=== PATIENT | female | born 1985 | race Caucasian/White ===

== ENCOUNTER 2023-10-03 08:16 | Emergency (ER) | payer OTHER, SELFPAY ==
[2023-10-03 08:24] VITALS: BP 117/71
--- NOTE | 2023-10-03 09:26 | ED.GENMED ---
History of Present Illness
General
Chief Complaint: Allergic Reaction
Source: patient
Exam Limitations: none
Time Seen by Provider: 10/03/23 08:43
Nursing documentation reviewed up to this point in time: agreed with
Travel History
Have you had any contact with someone who has COVID-19?: No
Do you have any symptoms of coronavirus? Fever > 100 degrees, chills, cough, shortness of breath, sore throat, loss of taste or smell, muscle aches, or headache?: No
History of Present Illness
History of Present Illness:
38-year-old female presenting to the emergency department today with concerns of left great toe swelling ongoing over the past week recently treated with Bactrim without significant improvement.. Proceed only had an ingrown toenail. Additionally
has some mild pain to the left index finger over the past few days. No redness or warmth. Also had some vague itchiness and puffiness of her eyes bilaterally no redness or warmth no changes in vision no additional symptoms otherwise. No fevers no
chest pain or shortness of breath.
Past History
Past History
ED Past Medical History: Other (Lyme disease, ovarian cysts)
ED Past Surgical History: Orthopedic (Lumbar laminectomy) and Other (widsom teeth)
Social History
Tobacco: Non-smoker
Alcohol: Occasional
Drug: None
Personal:
Living: with family
Review of Systems
Review of Systems
Allergies reviewed?: Yes
All Other Systems: ROS reviewed and negative except as documented in HPI and ROS
Phy Exam
Physical Exam
Physical Exam:
GENERAL: Alert , in no apparent distress
EYE: pupils equal and reactive
NECK: Supple, no significant adenopathy.
ENT: Very subtle swelling to the periorbital region however no redness or warmth normal eye examination. o/p clr, mmm.
CARDIAC: Regular rate and rhythm .
LUNGS: Clear breath sounds bilaterally, no acute respiratory distress, no wheezes/rales/rhonchi
ABDOMEN: Soft, without focal tenderness, no r/g, no cvat
NEUROLOGICAL: Alert and oriented, no focal neuro deficits
SKIN: Warm and dry, skin intact.
MUSCULOSKELETAL: Swelling and redness to the left sided great toe recent ingrown toenail removal. Other toes normal in appearance mild tenderness palpation to the area no drainage. Normal-appearing left sided index finger no redness or warmth
normal range of motion and strength normal public health physician strength normal cap refill. Well perfused.
PSYCH: Normal and appropriate interaction.
Course
Orders/Labs/Results
Orders:
Orders
10/03/23 09:29
Cephalexin Monohydrate [Keflex] 500 mg PO NOW STA
Vital Signs
Initial and Last Documented VS:
Initial Vital Signs
Temp Pulse Resp BP Pulse Ox
98.2 F 67 20 117/71 100
10/03/23 08:24 10/03/23 08:24 10/03/23 08:24 10/03/23 08:24 10/03/23 08:24
Last Documented Vital Signs
Temp Pulse Resp BP Pulse Ox
98.2 F 67 20 117/71 100
10/03/23 08:24 10/03/23 08:24 10/03/23 08:24 10/03/23 08:24 10/03/23 08:24
MDM/Problems Addressed
MDM/Problems Addressed:
38-year-old female presenting to the emergency department today with concerns of ongoing discomfort to the left great toe where she previously had a ingrown toenail removed and has been taking Bactrim over the past week for potential secondary
infection. Also has noticed some puffiness and itchiness surrounding her eyes. Also has some mild pain to the left index finger but no overlying changes index fingers normal in appearance no redness or warmth no skin changes no signs of paronychia
good range of motion and strength no abnormalities on physical examination. Puffiness of the eyes is vaguely apparent but no redness or warmth no signs of infection. Normal posterior pharynx clear lungs no signs of significant allergy or
anaphylaxis. Patient is concluding Bactrim today and advised to discontinue as this does not appear to be a necessary antibiotic at this time. Patient did have ongoing redness and swelling to the left great toe which could indicate alternative
bacteria causing rather than MRSA. Patient was treated with Keflex with this possibility and advised for close podiatry follow-up otherwise return precautions given safe for outpatient management.
*Critical Care Note
Total Time (30-74mins, 75-104mins- exclusive of procedures): Not Applicable
ED Attending Note
-
Portions of this chart may have been created with voice recognition software.� Occasional wrong word or��sound alike� substitutions may have occurred due to the inherent limitations of voice recognition software.
Discharge Plan
Departure
Patient Disposition: Home (Routine Discharge)
Date of Disposition: 10/03/23
Time of Disposition: 09:31
Patient with high blood pressure during this ER visit?: No
Condition: Good
Covid-19: Not Applicable
Discharge Problem:
Infection of toe, Medication reaction
Instructions: Adverse Drug Reactions, Adult (DC)
Prescriptions:
New
cephalexin 500 mg capsule
500 mg PO QID 7 Days Qty: 28 0RF
No Action
Pre-Sasha Multivitamins/Minerals
1 tab PO DAILY
acetaminophen 325 mg Tablet
650 mg PO Q4HPRN PRN (Reason: mild pain) Qty: 0 0RF
ibuprofen 600 mg Tablet
600 mg PO Q6HPRN PRN (Reason: moderate pain/cramps) Qty: 0 0RF
cephalexin 500 mg capsule
500 mg PO BID 5 Days Qty: 10 0RF
Referrals:
UNKNOWN - PT DOES,NOT KNOW [Family Provider] -
Activity Restrictions/Additional Instructions:
You came to the emergency department today with concerns of multiple symptoms. You may have a mild infection to your toe. Please take Keflex 4 times daily for the next of days and follow-up closely with the oil furnace installer. You can discontinue Bactrim
at this point. Return to the emergency department for any worsening, new or concerning symptoms.
Interventions
Interventions:
*Risk Screen - Suicide Last Done: 10/03/23 08:39
*General Assessment Last Done: 10/03/23 08:36
*Neglect/Abuse Screening Last Done: 10/03/23 08:39
*ED COVID-19 Vaccine History Last Done: 10/03/23 08:36
[2023-10-03] MEDS: KEFLEX 500 MG PO (09:40)
== END 2023-10-03 09:45 | disposition home or self-care (01) ==
LOC: EMR 08:16
PROVIDERS: EMERGENCY PHYSICIAN Emergency Medicine
DX: M79.89 Other specified soft tissue disorders (principal); T50.905A Adverse effect of unspecified drugs, medicaments and biological substances, initial encounter; L08.9 Local infection of the skin and subcutaneous tissue, unspecified; M79.645 Pain in left finger(s); L29.9 Pruritus, unspecified; Z98.890 Other specified postprocedural states; Z88.8 Allergy status to other drugs, medicaments and biological substances; Z91.041 Radiographic dye allergy status
CPT/HCPCS: 99283

== ENCOUNTER 2024-06-08 10:36 | Emergency (ER) | payer OTHER, SELFPAY ==
[2024-06-08 10:47] VITALS: BP 119/68
--- NOTE | 2024-06-08 10:54 | ED.GENMED ---
ED Provider Triage
<Angela Collins PA-C - Last Filed: 06/08/24 10:58>
-
Patient seen by provider in Triage?: Seen in Triage
Attestation: A medical screening examination has been initiated by a qualified medical provider. Based on the assessment performed at this time, it has been determined that an emergent medical condition may exist and the patient has been informed
that further medical evaluation and possible additional diagnostic testing may be needed.
HPI: 39yoF here with chest pain x 2 weeks since a positive COVID test on 05/25/24. No SOB. Sent here by urgent care.
GENERAL: Alert , in no apparent distress
EYE: No visual abnormalities.
NECK: Trachea midline
ENT: No visible abnormalities.
LUNGS: No acute respiratory distress
NEUROLOGICAL: Alert and oriented
SKIN: Skin intact. No visible changes.
MUSCULOSKELETAL: Moving extremities normally
PSYCH: Normal and appropriate interaction.
This is a medical evaluation conducted in person to initiate diagnostic evaluation and provide initial therapeutics. Please see further documentation by the treating clinician.
VSS. Cardiac labs, EKG, and CXR ordered.
History of Present Illness
<Angela Collins PA-C - Last Filed: 06/08/24 10:58>
General
Chief Complaint: Chest Pain
Time Seen by Provider: 06/08/24 13:07
<CHRISTOPHE Steven - Last Filed: 06/08/24 15:43>
General
Source: patient
Exam Limitations: none
Nursing documentation reviewed up to this point in time: agreed with
History of Present Illness
History of Present Illness:
Patient is a 39 female who presents to the ER complaining of chest pain. She reports she had COVID 2 weeks ago and her presenting symptoms were chest pain and sore throat however her chest pain never resolved. She is very tearful complaining of
constant chest pressure she describes this as feeling that there is a band around her chest. She reports at times she does feel little short of breath with this and feels the need to take a deep breath. Thanks she denies any fevers. She reports
pain is constant though she is able to sleep with it it worsens in intensity at times. It Does not resolve with Motrin Tylenol although she reports she was only taking this sporadically not consistent.
She denies any history PE DVT. 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 No family history PE DVT. She does not smoke. She is not on control.
Past History
<Angela Collins PA-C - Last Filed: 06/08/24 10:58>
Past History
ED Past Medical History: Other (Lyme disease, ovarian cysts)
ED Past Surgical History: Orthopedic (Lumbar laminectomy) and Other (widsom teeth)
Social History
Tobacco: Non-smoker
Alcohol: Occasional
Drug: None
Personal:
Living: with family
Review of Systems
<CHRISTOPHE Steven - Last Filed: 06/08/24 15:43>
Review of Systems
Allergies reviewed?: Yes
All Other Systems: ROS reviewed and negative except as documented in HPI and ROS
Constitutional: Reports no symptoms; Denies fever, fatigue or chills
EENT: Reports other (Patient had a sore throat when diagnosed with COVID 2 weeks ago resolved)
Respiratory: Reports other (Minimal shortness of breath)
Cardiac: Reports other (Pain across the anterior chest)
ABD/GI: Reports no symptoms
: Reports no symptoms
Musculoskeletal: Reports no symptoms
Skin: Reports no symptoms
Neurological: Reports no symptoms
Psychiatric: Reports no symptoms
Phy Exam
<CHRISTOPHE Steven - Last Filed: 06/08/24 15:43>
General Physical Exam
General Presentation: no apparent distress
General age: appears stated age
General Skin: warm and dry
General Habitus: normal
General Mental: alert
General Hydration: appears well hydrated
Cardiovascular Exam
Cardiovascular Exam: no murmur, normal peripheral pulses and bradycardia
Pulmonary Exam
Pulmonary Exam: lungs clear, no respiratory distress and other (chest non tender )
Neurological Exam
Neurological Exam: alert and oriented x3
Musculoskeletal Exam
Musculoskeletal Exam: full ROM
Skin Exam
Skin Exam: normal color and warm/dry
Psychiatric Exam
Psychiatric Exam: normal mood/affect
Scores
<CHRISTOPHE Steven - Last Filed: 06/08/24 15:43>
Heart Score for Chest Pain Patients
STEMI patient?: Not applicable
Course
<Angela Collins PA-C - Last Filed: 06/08/24 10:58>
Orders/Labs/Results
Orders:
Orders
06/08/24 10:53
Electrocardiogram (*1) Urgent
Reason for Study: Chest Pain
EKG- Treatment ONCE
Test Result ONCE
06/08/24 10:57
CR Chest - 2 Views Urgent
Comment:
Reason For Exam: CP
06/08/24 10:59
CMP [Comprehensive Metabolic Panel] Urgent
Complete Blood Count/With Diff Urgent
HCG, Serum Qualitative Screen Urgent
Troponin I Urgent
06/08/24 14:20
CT Chest Pe Study Urgent
Comment:
Reason For Exam: cp/sob
IV Insert/Care/Rem.- Treatment PRN
0.9% Sodium Chloride 1000 ml [Nss] 1,000 ml IV BOLUS
Ketorolac [Toradol] 15 mg IV NOW STA
Abnormal Lab Results
06/08/24
10:59
WBC 4.5 L 10^3/uL
(4.8-10.8)
RBC 5.73 H 10^6/uL
(4.20-5.40)
Hgb 11.3 L g/dL
(12.0-16.0)
Hct 35.3 L %
(37.0-47.0)
MCV 61.6 L fL
(81.0-99.0)
MCH 19.7 L pg
(27.0-31.0)
MCHC 32.0 L g/dL
(33.0-37.0)
RDW 20.5 H %
(11.5-14.5)
06/08/24 10:59
06/08/24 10:59
Vital Signs
Initial and Last Documented VS:
Initial Vital Signs
Temp Pulse Resp BP Pulse Ox
98.0 F 58 16 119/68 100
06/08/24 10:47 06/08/24 10:47 06/08/24 10:47 06/08/24 10:47 06/08/24 10:47
Last Documented Vital Signs
Temp Pulse Resp BP Pulse Ox
98.0 F 64 16 110/65 100
06/08/24 10:47 06/08/24 15:07 06/08/24 10:47 06/08/24 15:07 06/08/24 15:07
<CHRISTOPHE Steven - Last Filed: 06/08/24 15:43>
Orders/Labs/Results
Orders:
Orders
06/08/24 10:53
Electrocardiogram (*1) Urgent
Reason for Study: Chest Pain
EKG- Treatment ONCE
Test Result ONCE
06/08/24 10:57
CR Chest - 2 Views Urgent
Comment:
Reason For Exam: CP
06/08/24 10:59
CMP [Comprehensive Metabolic Panel] Urgent
Complete Blood Count/With Diff Urgent
HCG, Serum Qualitative Screen Urgent
Troponin I Urgent
06/08/24 14:20
CT Chest Pe Study Urgent
Comment:
Reason For Exam: cp/sob
IV Insert/Care/Rem.- Treatment PRN
0.9% Sodium Chloride 1000 ml [Nss] 1,000 ml IV BOLUS
Ketorolac [Toradol] 15 mg IV NOW STA
Abnormal Lab Results
06/08/24
10:59
WBC 4.5 L 10^3/uL
(4.8-10.8)
RBC 5.73 H 10^6/uL
(4.20-5.40)
Hgb 11.3 L g/dL
(12.0-16.0)
Hct 35.3 L %
(37.0-47.0)
MCV 61.6 L fL
(81.0-99.0)
MCH 19.7 L pg
(27.0-31.0)
MCHC 32.0 L g/dL
(33.0-37.0)
RDW 20.5 H %
(11.5-14.5)
06/08/24 10:59
06/08/24 10:59
Vital Signs
Initial and Last Documented VS:
Initial Vital Signs
Temp Pulse Resp BP Pulse Ox
98.0 F 58 16 119/68 100
06/08/24 10:47 06/08/24 10:47 06/08/24 10:47 06/08/24 10:47 06/08/24 10:47
Last Documented Vital Signs
Temp Pulse Resp BP Pulse Ox
98.0 F 64 16 110/65 100
06/08/24 10:47 06/08/24 15:07 06/08/24 10:47 06/08/24 15:07 06/08/24 15:07
Dye Expert consulted with Physician
Dye Expert consulted with physician?: Yes
Name of Physician Consulted: shavon
<CHRISTOPHE Steven - Last Filed: 06/08/24 15:43>
MDM/Problems Addressed
Differential Diagnosis Includes:
Not limited to pleuritic chest pain, less likely PE, pneumonia, bronchitis, less likely pericarditis less likely ACS
MDM/Problems Addressed:
Patient is a 39-year-old female who was diagnosed with COVID 2 weeks ago and her presenting symptoms initially were sore throat and chest pain. She reports for the sore throat has resolved and she has had persistent pain across her chest and
describes this as a pressure like she has a weight on her chest. she reports only very minimal shortness of breath she feels that she' has to take into breath .' she denies any radiation. She reports pain is mostly constant but worsens. She
presents awake alert no acute distress afebrile nontachycardic nonhypoxic. She has DVT PE risk factors. She does have thalassemia minor therefore CT was done and negative. Blood work unremarkable. Patient was given Toradol with some relief.
Negative cardiac troponin no acute findings on EKG no heart murmur
Case is also ED physician likely pleuritic in nature however with workup no concerning findings. Will plan to discharge home however I did review with patient the importance of taking an alternating ibuprofen and Tylenol consistently over the next
48 hours to see if this relieves her symptoms. She is to follow with her family doctor return to the ER for any worsening symptoms.
<CHRISTOPHE Steven - Last Filed: 06/08/24 15:43>
*Radiology
Radiology exam reviewed: radiology read reviewed
*Pulse Oximetry
Patient hypoxic: no
*EKG
Interpreted by ED Provider?: Yes
Heart Rate: 52
Rate: bradycardiac
Rhythm: sinus
Ischemia: no ischemia
*Critical Care Note
Total Time (30-74mins, 75-104mins- exclusive of procedures): Not Applicable
ED Attending Note
<Angela Collins PA-C - Last Filed: 06/08/24 10:58>
-
Portions of this chart may have been created with voice recognition software.� Occasional wrong word or��sound alike� substitutions may have occurred due to the inherent limitations of voice recognition software.
Discharge Plan
Departure
Patient Disposition: Home (Routine Discharge)
Date of Disposition: 06/08/24
Time of Disposition: 15:41
Patient with high blood pressure during this ER visit?: No
Condition: Fair
Covid-19: Not Applicable
Discharge Problem:
Chest pain
Instructions: Chest Pain PCP Follow Up
Prescriptions:
No Action
Pre-Sasha Multivitamins/Minerals
1 tab PO DAILY
acetaminophen 325 mg Tablet
650 mg PO Q4HPRN PRN (Reason: mild pain) Qty: 0 0RF
ibuprofen 600 mg Tablet
600 mg PO Q6HPRN PRN (Reason: moderate pain/cramps) Qty: 0 0RF
cephalexin 500 mg capsule
500 mg PO BID 5 Days Qty: 10 0RF
cephalexin 500 mg capsule
500 mg PO QID 7 Days Qty: 28 0RF
Referrals:
NONE,* [Family Provider] -
Activity Restrictions/Additional Instructions:
As discussed there were no concerning findings on your testing here in the ER.
As discussed alternate between ibuprofen 600 mg every hours with food and Tylenol 650 mg every 6 hours.
Follow-up closely with your family doctor in the next several days and return if any worsening of symptoms.
Interventions
Interventions:
*Risk Screen - Suicide Last Done: 06/08/24 15:06
*General Assessment Last Done: 06/08/24 15:06
*Neglect/Abuse Screening Last Done: 06/08/24 15:06
*ED COVID-19 Vaccine History Last Done: 06/08/24 15:06
ED- Cardiac Assessment Last Done: 06/08/24 15:06
Discharge Date and Time
Print Language: SYRIAC
[2024-06-08 11:10] LABS: % Basophils 0.7 % (0-2); % Eosinophils 1.6 % (0-6); % Immature Granulocytes 0.2 % (0-0.5); % Lymphocytes 38.4 % (20.5-51.1); % Monocytes 8.9 % (1.7-9.3); % Neutrophils 50.2 % (42.2-75.2); Absolute Eosinophils 0.1 10^3/uL (0-0.7); Absolute Lymphocytes 1.7 10^3/uL (1.2-3.4); Absolute Monocytes 0.4 10^3/uL (0.1-0.6); Absolute Neutrophils 2.3 10^3/uL (1.4-6.5); Hematocrit 35.3 % (37.0-47.0); Hemoglobin 11.3 g/dL (12.0-16.0); Mean Corpuscular Hgb 19.7 pg (27.0-31.0); Mean Corpuscular Volume 61.6 fL (81.0-99.0); Mean Platelet Volume 9.9 fL (7.4-10.4); Nucleated Red Blood Cells % 0 %; Platelet Count 352 10^3/uL (130-400); Red Blood Cell Count 5.73 10^6/uL (4.20-5.40); Red Cell Dist. Width 20.5 % (11.5-14.5); White Blood Cell Count 4.5 10^3/uL (4.8-10.8)
[2024-06-08 11:25] LABS: HCG, Serum Qualitative Screen Negative
[2024-06-08 11:30] LABS: Troponin I < 0.012 ng/ml
[2024-06-08 11:37] LABS: ALT (SGPT) 13 U/L (0-35); AST (SGOT) 20 U/L (14-36); Albumin 4.8 g/dl (3.5-5.0); Alkaline Phosphatase 39 U/L (38-126); Blood Urea Nitrogen 13 mg/dl (7-17); Carbon Dioxide 26 mmol/L (22-30); Chloride 102 mmol/L (98-107); Glucose 94 mg/dl (70-99); Potassium 4.1 mmol/L (3.5-5.1); Sodium 139 mmol/L (135-145); Total Bilirubin 0.6 mg/dl (0.2-1.3); Total Protein 7.4 g/dl (6.3-8.2); eGFR > 60.00
[2024-06-08] MEDS: TORADOL 15 MG IV (14:55)
[2024-06-08] MEDS: NSS 1000 IV (14:55)
[2024-06-08 15:07] VITALS: BP 110/65
== END 2024-06-08 15:56 | disposition home or self-care (01) ==
LOC: EMR 10:36
PROVIDERS: Student in an Organized Health Care Education/Training Program; EMERGENCY PHYSICIAN Emergency Medicine
DX: R07.89 Other chest pain (principal); R06.02 Shortness of breath; Z86.16 Personal history of COVID-19; Z88.8 Allergy status to other drugs, medicaments and biological substances; Z91.041 Radiographic dye allergy status
CPT/HCPCS: 99285; 96361; 96374; 71046; 71275; 80053; 84484; 84703; 85025; 93005; Q9967